=== PATIENT | female | born 1975 | race Caucasian/White ===

== ENCOUNTER → 2024-01-31 16:27 | Outpatient (REF) | payer OTHER, SELFPAY | LOC: WDC 16:27 | PROVIDERS: ATTENDING PHYSICIAN Obstetrics & Gynecology | DX: Z12.31 Encounter for screening mammogram for malignant neoplasm of breast (principal) | CPT/HCPCS: 77063; 77067 ==

== ENCOUNTER → 2024-03-21 20:43 | Outpatient (REF) | payer OTHER, SELFPAY | LOC: MRI 3T 20:43 | PROVIDERS: ATTENDING PHYSICIAN Physician Assistant; FAMILY PHYSICIAN Nurse Practitioner Adult Health | DX: H93.12 Tinnitus, left ear (principal) | CPT/HCPCS: 70553; A9575 ==

== ENCOUNTER → 2025-01-31 16:22 | Outpatient (REF) | payer OTHER, SELFPAY | LOC: WDC 16:22 | PROVIDERS: ATTENDING PHYSICIAN Obstetrics & Gynecology | DX: Z12.31 Encounter for screening mammogram for malignant neoplasm of breast (principal) | CPT/HCPCS: 77063; 77067 ==

== ENCOUNTER → 2025-04-16 10:15 | Outpatient (REF) | payer OTHER, SELFPAY | LOC: RAD 10:15 | PROVIDERS: ATTENDING PHYSICIAN Physician Assistant Medical | DX: R10.11 Right upper quadrant pain (principal); E04.9 Nontoxic goiter, unspecified; E04.1 Nontoxic single thyroid nodule | CPT/HCPCS: 76536; 76700 ==

== ENCOUNTER → 2025-05-23 07:23 | Outpatient (REF) | payer OTHER, SELFPAY ==
[2025-05-23 07:48] VITALS: BP 113/80; BP_SYST 67
== END ==
LOC: RADI 07:23
PROVIDERS: ATTENDING PHYSICIAN Internal Medicine Endocrinology, Diabetes & Metabolism; FAMILY PHYSICIAN Physician Assistant Medical
DX: E04.2 Nontoxic multinodular goiter (principal)
CPT/HCPCS: 10005; 10006; 88173